=== PATIENT | male | born 1955 ===

== ENCOUNTER → 2022-10-12 | Day surgery (SDC) | payer OTHER ==
--- NOTE | 2022-10-12 11:54 | RAD REPORT ---
EXAM DESCRIPTION: US - Guided FNA Non Breast - 10/12/2022 10:37 am CLINICAL HISTORY: E04.1 COMPARISON: No comparisons FINDINGS: Preoperative diagnosis: Right thyroid nodule measuring 13 mm.. Post operative diagnosis: Same. Conscious Sedation: None Fluoroscopy time: None Contrast used: None Estimated blood loss: Minimal Specimens:10 x 25 gauge FNA needles The right neck was prepped and draped in the usual sterile fashion. 1% lidocaine was infiltrated into the subcutaneous tissues for local anesthesia. Real time ultrasound scanning of the right thyroid de monstrated 13 mm circumscribed nodule. Under ultrasound guidance, using 25 gauge FNA needles, 10 spec imens were obtained of this lesion and sent to pathology for evaluation. There were no complications. IMPRESSION: Technically successful ultrasound-guided right thyroid nodule FNA procedure.
== END ==
LOC: FNA 08:00
PROVIDERS: ATTEND Otolaryngology Facial Plastic Surgery
PROC: 0GBH3ZX Excision of Right Thyroid Gland Lobe, Percutaneous Approach, Diagnostic (ICD-10-PCS; principal; 2022-10-12)
DX: E04.1 Nontoxic single thyroid nodule (principal)
CPT/HCPCS: 88162; 88333